=== PATIENT | male | born 1965 | race American Indian/Alaskan Native ===

== ENCOUNTER 2016-11-06 08:08 | Emergency (ER) | payer OTHER ==
[2016-11-06] MEDS ORDERED: MOTRIN PO ONE (12:11)
[2016-11-06] MEDS ORDERED: SUDAFED PO PRN (12:12)
--- NOTE | 2016-11-06 12:17 | Emergency Department Report ---
HPI - General Chief Complaint: Upper Respiratory Infection - HPI HPI: 30-year-old -[place] male with no past medical history currently takes no medication comes in for complaint of upper respiratory symptoms since Thursday. Patient reports sore throat or sinus pressure or nasal congestion coughing up white phlegm throat feels scratchy just feels sore with cough. Patient has taken Pili-Elizabeth whts-oze-qhoxvik with little relief. ED Past Medical Hx - Past Medical History Previous Medical History?: No - Surgical History Past Surgical History?: No - Social History Smoking Status: Former Smoker Substance Use Type: Alcohol - Medications Home Medications: Home Medications Medication Instructions Recorded Confirmed Last Taken Type HYDROcodone/APAP 5-325 [[place] 1 each PO Q8HR PRN #20 tablet 10/03/13 Unknown Rx 5/325 mg] Omeprazole [Prilosec] 40 mg PO DAILY #30 capsule. 10/03/13 Unknown Rx Ondansetron [Zofran Odt] 4 mg PO Q6HR PRN #20 tab.rapdis 10/03/13 Unknown Rx Cephalexin [Keflex] 500 mg PO Q8HR #21 cap 12/16/15 Unknown Rx Ibuprofen [Motrin 800 MG tab] 800 mg PO Q8HR PRN #15 tablet 12/16/15 Unknown Rx Fexofenadine/Pseudoephedrine 1 each PO Q12H #60 tab.er.12h 11/06/16 Unknown Rx [Alda-D 12 Hour Tablet] Fluticasone [Flonase] 1 spray NS QDAY #1 bottle 11/06/16 Unknown Rx Montelukast [Singulair] 10 mg PO QPM #30 tablet 11/06/16 Unknown Rx ED Review of Systems ROS: Stated complaint: SORETHROAT/COUGH Other details as noted in HPI Physical Exam - Physical Exam Vital Signs: Vital Signs 11/06/16 08:16 Temperature 99.3 F Pulse Rate 90 Respiratory 20 Rate Blood Pressure 141/94 O2 Sat by Pulse 95 Oximetry General: GENERAL: Alert and oriented x3, no apparent distress, Normal Gait, atraumatic. HEAD: Head is normocephalic and a-traumatic. EYES: Extra ocular muscles are intact. Pupils are equal, round, and reactive to light and accommodation. EARS: symetrical, atraumatic, non tender, ear canal clear and moderate cerumen, tympanic membrance non inflamed. gross auditory nml bilaterally. NOSE: Nose symetrical, Nontender,Nares appeared normal. Discharge noted bilateral nares MOUTH:Mouth is well hydrated and without lesions. Tonsils nonerythematous or swollen, Uvula midline, Tongue not elevated. Mucous membranes are moist. Posterior pharynx clear, no exudate or lesions. Patent airways. NECK: Supple. Non edematous, No carotid bruits. No lymphadenopathy or thyromegaly. LUNGS: Symetrical with respiration, No wheezing, no rales or crackles, CTAB. HEART: S1, S2 present, regular rate and rhythm without murmur, no rubs, no gallops. ABDOMEN: No organomegaly was noted,Positive bowel sounds, soft, and non- distended. . Nontender to palpation on all Quadrants, NO CVA tenderness. NEUROLOGIC: No focal Deficit, Cranial nerves II through XII are grossly intact. No loss of sensation, No facial droop, Negative rhomberg. PSYCHIATRIC: Mood is congruent with affect, denies suicidal or homicidal ideations. SKIN: Warm and dry, No lesions, No ulceration or induration present ED Course Vital Signs 11/06/16 08:16 Temperature 99.3 F Pulse Rate 90 Respiratory 20 Rate Blood Pressure 141/94 O2 Sat by Pulse 95 Oximetry ED Medical Decision Making - Medical Decision Making Discussed with patient that he needs to try some Claritin-D [id number] one tablet by mouth twice a day Sudafed [id number] one tablet every 4-6 hours when necessary Flonase as prescribed Afrin at bedtime. Follow up with her primary care provider Critical care attestation.: If time is entered above; I have spent that time in minutes in the direct care of this critically ill patient, excluding procedure time. ED Disposition Clinical Impression: Upper respiratory infection Qualifiers: URI type: unspecified URI Qualified Code(s): J06.9 - Acute upper respiratory infection, unspecified Disposition: DISCHARGED TO HOME OR SELFCARE Is pt being admited?: No Does the pt Need Aspirin: No Condition: Stable Instructions: Upper Respiratory Infection (ED) Additional Instructions: Please is take medications as prescribed. Follow-up to primary care provider if symptoms continue or get worse. Prescriptions: Fexofenadine/Pseudoephedrine [Alda-D 12 Hour Tablet] 1 each PO Q12H #60 tab.er.12h Fluticasone [Flonase] 1 spray NS QDAY #1 bottle Montelukast [Singulair] 10 mg PO QPM #30 tablet Referrals: IRIS WRIGHT MD, PHD [Primary Care Provider] - 3-5 Days Forms: Work/School Release Form(ED)
[2016-11-06 12:41] VITALS: BP 136/90
== END 2016-11-06 12:40 | disposition home or self-care (01) ==
LOC: ED 08:08
DX: J06.9 Acute upper respiratory infection, unspecified (principal); Z87.891 Personal history of nicotine dependence
CPT/HCPCS: 99282